=== PATIENT | female | born 1985 | race Hispanic/Latino ===

== ENCOUNTER 2017-11-22 12:54 | Emergency (ER) | payer SELFPAY ==
[2017-11-22 13:55] LABS: BASOPHILS % (AUTO) 0.3 % (0.0-5.0); EOSINOPHILS % (AUTO) 0.8 % (0.0-8.0); HEMATOCRIT 41.1 % (36-48); LYMPHOCYTES % (AUTO) 13.1 % (21.0-51.0); MEAN CORPUSCULAR HEMOGLOBIN 32.7 pg (27.0-33.0); MEAN CORPUSCULAR HGB CONC 35.8 g/dL (32.0-36.0); MEAN CORPUSCULAR VOLUME 91.4 fL (79-99); MONOCYTES % (AUTO) 10.1 % (3.0-13.0); NEUTROPHILS % (AUTO) 75.7 % (40.0-77.0); PLATELET COUNT (AUTO) 232 K/uL (130-400); WHITE BLOOD COUNT (AUTO) 9.6 K/uL (4.8-10.8)
[2017-11-22 13:56] LABS: APPEARANCE,URINE Clear (CLEAR); BILIRUBIN,URINE Negative (NEGATIVE); COLOR,URINE Yellow (YELLOW); GLUCOSE, URINE (UA) Negative (NEGATIVE); KETONES,URINE Negative (NEGATIVE); LEUKOCYTE ESTERASE ,URINE Trace (NEGATIVE); NITRATE,URINE Negative (NEGATIVE); OCCULT BLOOD,URINE Negative (NEGATIVE); PH,URINE 6.5 (5.0-8.0); PROTEIN,URINE Negative (NEGATIVE)
[2017-11-22] MEDS ORDERED: ONDANSETRON HCL MDV 20ML 2 MG/ML VIAL ONE (14:04)
[2017-11-22] MEDS ORDERED: KETOROLAC TROMETHAMINE 30MG/ML ONE (14:04)
[2017-11-22] MEDS ORDERED: SODIUM CHLORIDE 0.9% 1000ML 1,000 ML IV ONE (14:04)
[2017-11-22 14:05] LABS: BACTERIA,URINE Rare /HPF (None Seen); SQUAMOUS EPITHELIAL CELL,UR Few /HPF (0-2); WBC,URINE 0-1 /HPF (0-1)
[2017-11-22 14:06] LABS: CREATININE 0.6 mg/dL (0.5-1.5); POTASSIUM 3.4 mmol/L (3.5-5.1)
[2017-11-22 14:10] LABS: ALBUMIN 3.8 g/dL (3.5-5.0); BILIRUBIN,TOTAL 0.3 mg/dL (0.2-1.0)
== END 2017-11-22 16:22 | disposition home or self-care (01) ==
LOC: EDH 12:54
DX: R10.9 Unspecified abdominal pain (principal)
CPT/HCPCS: 36415; 74176; 80053; 81001; 81025; 85025; 96361; 96374; 96375; 99285; J1885; J7030

== ENCOUNTER 2019-07-18 12:03 | Emergency (ER) | payer SELFPAY ==
[2019-07-18 13:05] LABS: APPEARANCE,URINE CLEAR (CLEAR); BILIRUBIN,URINE NEGATIVE (NEGATIVE); COLOR,URINE RED (YELLOW); GLUCOSE, URINE (UA) NEGATIVE (NEGATIVE); KETONES,URINE NEGATIVE (NEGATIVE); LEUKOCYTE ESTERASE ,URINE TRACE (NEGATIVE); NITRATE,URINE NEGATIVE (NEGATIVE); OCCULT BLOOD,URINE LARGE (NEGATIVE); PROTEIN,URINE 100 mg/dL (NEGATIVE); UROBILINOGEN,URINE 0.2 mg/dL (0.2-1.0)
[2019-07-18 13:08] LABS: HCG,QUAL RESULT NEGATIVE (NEGATIVE)
[2019-07-18 13:13] LABS: BACTERIA,URINE Few /HPF (None Seen); RBC,URINE TNTC /HPF (0-1)
[2019-07-18] MEDS ORDERED: KETOROLAC TROMETHAMINE 30MG/ML ONE (13:32)
== END 2019-07-18 16:33 | disposition home or self-care (01) ==
LOC: EDH 12:03
DX: S39.012A Strain of muscle, fascia and tendon of lower back, initial encounter (principal); F41.9 Anxiety disorder, unspecified; W18.39XA Other fall on same level, initial encounter; Y93.01 Activity, walking, marching and hiking; Y92.89 Other specified places as the place of occurrence of the external cause; Y99.8 Other external cause status
CPT/HCPCS: 72100; 81001; 81025; 96372; 99285; J1885

== ENCOUNTER 2019-10-23 11:13 | Emergency (ER) | payer OTHER ==
[2019-10-23 12:26] LABS: APPEARANCE,URINE Clear (CLEAR); BILIRUBIN,URINE Negative (NEGATIVE); COLOR,URINE Yellow (YELLOW); GLUCOSE, URINE (UA) Negative (NEGATIVE); KETONES,URINE Negative (NEGATIVE); LEUKOCYTE ESTERASE ,URINE Moderate (NEGATIVE); NITRATE,URINE Negative (NEGATIVE); OCCULT BLOOD,URINE Moderate (NEGATIVE); PH,URINE 6.5 (5.0-8.0); PROTEIN,URINE Negative (NEGATIVE); UROBILINOGEN,URINE 0.2 mg/dL (0.2-1.0)
[2019-10-23 12:27] LABS: HCG,QUAL RESULT NEGATIVE (NEGATIVE)
[2019-10-23 12:51] LABS: BACTERIA,URINE Few /HPF (None Seen)
[2019-10-23] MEDS ORDERED: CEFTRIAXONE SODIUM 500 MG VIAL ONE (14:01)
[2019-10-23] MEDS ORDERED: AZITHROMYCIN 250 MG TABLET PO ONE (14:01)
[2019-10-23] MEDS ORDERED: ONDANSETRON ODT 4 MG TAB ONE (14:02)
[2019-10-23] MEDS ORDERED: LIDOCAINE HCL-MPF 1% 2ML VIAL ONE (14:02)
== END 2019-10-23 16:24 | disposition home or self-care (01) ==
LOC: EDH 11:13
DX: N39.0 Urinary tract infection, site not specified (principal); Z20.2 Contact with and (suspected) exposure to infections with a predominantly sexual mode of transmission; Z98.51 Tubal ligation status
CPT/HCPCS: 81001; 81025; 87210; 87486; 87797; 96372; 99283; J0696; J3490

== ENCOUNTER 2020-04-23 04:41 | Emergency (ER) | payer OTHER | END 2020-04-23 05:28 | disposition home or self-care (01) | LOC: EDH 04:41 | DX: F43.0 Acute stress reaction (principal); I10 Essential (primary) hypertension; Z98.51 Tubal ligation status ==

== ENCOUNTER 2020-06-25 11:42 | Emergency (ER) | payer SELFPAY ==
[2020-06-25 12:38] LABS: APPEARANCE,URINE Cloudy (CLEAR); BILIRUBIN,URINE Negative (NEGATIVE); COLOR,URINE Yellow (YELLOW); GLUCOSE, URINE (UA) Negative (NEGATIVE); KETONES,URINE 15 mg/dL (NEGATIVE); LEUKOCYTE ESTERASE ,URINE Small (NEGATIVE); NITRATE,URINE Negative (NEGATIVE); OCCULT BLOOD,URINE Negative (NEGATIVE); PH,URINE 5.5 (5.0-8.0); PROTEIN,URINE Negative (NEGATIVE)
[2020-06-25] MEDS ORDERED: ACETAMINOPHEN EXTRA STRENGTH 500 MG TABLET ONE (12:48)
[2020-06-25 12:57] LABS: BACTERIA,URINE Few /HPF (None Seen); RBC,URINE 0-1 /HPF (0-1); WBC,URINE 0-1 /HPF (0-1)
[2020-06-25 13:22] LABS: RAPID GROUP A STREP NEGATIVE (NEGATIVE)
[2020-06-25] MEDS ORDERED: SODIUM CHLORIDE 0.9% 1000ML 1,000 ML IV ONE (13:37)
[2020-06-25] MEDS ORDERED: AZITHROMYCIN 250 MG TABLET PO ONE (13:39)
[2020-06-25] MEDS ORDERED: CEFTRIAXONE SODIUM 1 GM ONE (13:39)
[2020-06-25] MEDS ORDERED: IBUPROFEN 600 MG TABLET ONE (13:40)
[2020-06-25 13:58] LABS: BASOPHILS % (AUTO) 0.4 % (0.0-5.0); EOSINOPHILS % (AUTO) 1.3 % (0.0-8.0); HEMATOCRIT 40.2 % (36-48); LYMPHOCYTES % (AUTO) 8.2 % (21.0-51.0); MEAN CORPUSCULAR HEMOGLOBIN 32.1 pg (27.0-33.0); MEAN CORPUSCULAR HGB CONC 35.1 g/dL (32.0-36.0); MEAN CORPUSCULAR VOLUME 91.6 fL (79-99); MONOCYTES % (AUTO) 9.5 % (3.0-13.0); NEUTROPHILS % (AUTO) 80.4 % (40.0-77.0); PLATELET COUNT (AUTO) 186 K/uL (130-400); RED BLOOD CELL COUNT(AUTO) 4.39 MIL/uL (4.00-5.50); RED CELL DISTRIBUTION WIDTH 10.9 % (11.0-15.5); WHITE BLOOD COUNT (AUTO) 13.2 K/uL (4.8-10.8)
[2020-06-25 14:20] LABS: INR 0.97 (0.85-1.15); PARTIAL THROMBOPLASTIN TIME 28.7 SEC (26.3-35.5); PROTHROMBIN TIME 10.5 SEC (9.6-11.6)
[2020-06-25 14:25] LABS: ALANINE AMINOTRANSFERASE 39 U/L (12-78); ALBUMIN 3.7 g/dL (3.5-5.0); ASPARTATE AMINOTRANSFERASE 22 U/L (10-37); BILIRUBIN,TOTAL 0.5 mg/dL (0.2-1.0); CARBON DIOXIDE 22 mmol/L (21-32); CHLORIDE 100 mmol/L (101-111); CREATINE KINASE, TOTAL 40 U/L (21-232); GLUCOSE,RANDOM 96 mg/dL (70-105); MYOGLOBIN 20 ng/mL (10-92); SODIUM SERUM 137 mmol/L (136-145); TOTAL PROTEIN, SERUM 7.5 g/dL (6.0-8.3); TROPONIN I < 0.04 ng/mL (0.00-0.06); UREA NITROGEN, BLOOD 7 mg/dL (7-18)
[2020-06-25 14:33] LABS: CREATININE 0.7 mg/dL (0.5-1.5); GLOMERULAR FILTR. RATE CALC 103 mL/min (>60)
== END 2020-06-25 15:52 | disposition home or self-care (01) ==
LOC: EDH 11:42
DX: J02.9 Acute pharyngitis, unspecified (principal); R50.9 Fever, unspecified; R51.9 Headache, unspecified; I10 Essential (primary) hypertension; Z98.51 Tubal ligation status
CPT/HCPCS: 36415; 71045; 80053; 81001; 81025; 82550; 83605; 83874; 84145; 84484; 85025; 85610; 85730; 87040 ×2; 87088; 87804 ×2; 87880; 93005; 96365; 96375; 99285; J0696; J7030

== ENCOUNTER 2021-05-19 22:06 | Emergency (ER) | payer OTHER ==
[~2021-05-19] VITALS: Ht 149.9 cm; Wt 76.2 kg
[2021-05-19] MEDS ORDERED: HYDR-3421 PO (22:39)
[2021-05-19] MEDS ORDERED: HYDROXYZINE 25 MG TABLET ONE (22:41)
[2021-05-19 22:50] VITALS: BP 124/76
[2021-05-19] MEDS ORDERED: HYDROXYZINE 25 MG TABLET PO ONE (23:00)
== END 2021-05-19 22:51 | disposition home or self-care (01) ==
LOC: EDH 22:06
DX: S90.562A Insect bite (nonvenomous), left ankle, initial encounter (principal); S90.561A Insect bite (nonvenomous), right ankle, initial encounter; S20.361A Insect bite (nonvenomous) of right front wall of thorax, initial encounter; B88.0 Other acariasis; W57.XXXA Bitten or stung by nonvenomous insect and other nonvenomous arthropods, initial encounter; Y93.89 Activity, other specified; Y92.89 Other specified places as the place of occurrence of the external cause; Y99.8 Other external cause status

== ENCOUNTER 2022-01-05 18:11 | Emergency (ER) | payer OTHER ==
[~2022-01-05] VITALS: Ht 149.9 cm; Wt 78.0 kg
[~2022-01-05 18:11] MED LIST: HYDR-3421 PO
[2022-01-05 18:13] VITALS: BP 140/88
[2022-01-05 19:01] LABS: BASOPHILS % (AUTO) 0.5 % (0.0-5.0); EOSINOPHILS % (AUTO) 0.4 % (0.0-8.0); HEMATOCRIT 44.1 % (36-48); LYMPHOCYTES % (AUTO) 13.5 % (21.0-51.0); MEAN CORPUSCULAR HEMOGLOBIN 32.5 pg (27.0-33.0); MEAN CORPUSCULAR HGB CONC 34.9 g/dL (32.0-36.0); MONOCYTES % (AUTO) 6.2 % (3.0-13.0); NEUTROPHILS % (AUTO) 79.1 % (40.0-77.0); PLATELET COUNT (AUTO) 216 K/uL (130-400); RED BLOOD CELL COUNT(AUTO) 4.74 MIL/uL (4.00-5.50); RED CELL DISTRIBUTION WIDTH 11.5 % (11.0-15.5); WHITE BLOOD COUNT (AUTO) 11.1 K/uL (4.8-10.8)
[2022-01-05 19:20] LABS: CARBON DIOXIDE 28 mmol/L (21-32); CHLORIDE 102 mmol/L (101-111); CREATININE 0.8 mg/dL (0.5-1.5); GLOMERULAR FILTR. RATE CALC 87 mL/min (>60); GLUCOSE,RANDOM 97 mg/dL (70-105); POTASSIUM 3.9 mmol/L (3.5-5.1); SODIUM SERUM 138 mmol/L (136-145); UREA NITROGEN, BLOOD 9 mg/dL (7-18)
[2022-01-05 19:25] LABS: ALANINE AMINOTRANSFERASE 50 U/L (12-78); ALBUMIN 3.7 g/dL (3.5-5.0); ALCOHOL, BLOOD < 3 mg/dL (0-10); ASPARTATE AMINOTRANSFERASE 26 U/L (10-37); BILIRUBIN,TOTAL 0.4 mg/dL (0.2-1.0); CREATINE KINASE, TOTAL 44 U/L (21-232); TOTAL PROTEIN, SERUM 7.8 g/dL (6.0-8.3)
[2022-01-05 19:27] LABS: APPEARANCE,URINE Clear (CLEAR); BILIRUBIN,URINE Negative (NEGATIVE); COLOR,URINE Yellow (YELLOW); GLUCOSE, URINE (UA) Negative (NEGATIVE); KETONES,URINE Negative (NEGATIVE); LEUKOCYTE ESTERASE ,URINE Negative (NEGATIVE); NITRATE,URINE Negative (NEGATIVE); OCCULT BLOOD,URINE Negative (NEGATIVE); PROTEIN,URINE Negative (NEGATIVE)
[2022-01-05 19:30] LABS: HCG,QUAL RESULT NEGATIVE (NEGATIVE)
[2022-01-05 19:31] LABS: ACETAMINOPHEN < 1 mcg/mL (10-30); SALICYLATE < 2.8 mg/dL (2.8-20.0)
[2022-01-05 19:35] LABS: AMPHET/METH SCREEN,URINE NEGATIVE (NEGATIVE); BARBITURATE SCREEN, URINE NEGATIVE (NEGATIVE); BENZODIAZEPINES SCREEN,URINE NEGATIVE (NEGATIVE); CANNABINOID SCREEN,URINE NEGATIVE (NEGATIVE); COCAINE SCREEN,URINE NEGATIVE (NEGATIVE); OPIATE SCREEN,URINE NEGATIVE (NEGATIVE); PHENCYCLIDINE SCREEN,URINE NEGATIVE (NEGATIVE)
== END 2022-01-05 20:43 | disposition home or self-care (01) ==
LOC: EDH 18:11
DX: Z00.8 Encounter for other general examination (principal); F10.10 Alcohol abuse, uncomplicated; Z20.822 Contact with and (suspected) exposure to COVID-19; E66.9 Obesity, unspecified; F41.9 Anxiety disorder, unspecified; Z68.34 Body mass index [BMI] 34.0-34.9, adult
CPT/HCPCS: 36415; 80053; 80305; 81003; 81025; 82550; 85025; 87635; 99283; C9803; G0481

== ENCOUNTER 2022-02-04 18:14 | Emergency (ER) | payer OTHER ==
[~2022-02-04] VITALS: Ht 149.9 cm; Wt 75.7 kg
[2022-02-04 18:15] VITALS: BP 127/76
[2022-02-04] MEDS ORDERED: ACETAMINOPHEN 500 MG TABLET PO ONE (19:30)
[2022-02-04] MEDS ORDERED: AZITHROMYCIN 250 MG TABLET PO ONE (19:30)
[2022-02-04] MEDS ORDERED: LOPE2CAP PO (19:32)
[2022-02-04] MEDS ORDERED: ACET-66 PO (19:32)
[2022-02-04] MEDS ORDERED: 0.9%NACL 1000ML 1,000 ML IV ONE (21:00)
== END 2022-02-04 20:19 | disposition home or self-care (01) ==
LOC: EDH 18:14
DX: R19.7 Diarrhea, unspecified (principal); R50.9 Fever, unspecified; Z20.822 Contact with and (suspected) exposure to COVID-19; F41.9 Anxiety disorder, unspecified; Z79.899 Other long term (current) drug therapy; Z98.890 Other specified postprocedural states
CPT/HCPCS: 87635; 87804 ×2; 99283; C9803

== ENCOUNTER 2022-02-04 20:39 | Emergency (ER) | payer OTHER ==
[~2022-02-04 20:39] MED LIST changes: +ACET-66 PO; +LOPE2CAP PO
[2022-02-04] MEDS ORDERED: 0.9%NACL 1000ML 1,000 ML IV SCH (21:00)
[2022-02-04] MEDS ORDERED: 0.9%NACL 1000ML 1,000 ML IV ONE (21:00)
[2022-02-04] MEDS ORDERED: ONDANSETRON 4MG INJ IVP ONE (21:00)
[2022-02-04 21:15] VITALS: BP 112/79
[2022-02-04 22:25] LABS: APPEARANCE,URINE CLEAR (CLEAR); BILIRUBIN,URINE SMALL (NEGATIVE); COLOR,URINE YELLOW (YELLOW); GLUCOSE, URINE (UA) NEGATIVE (NEGATIVE); KETONES,URINE 40 mg/dL (NEGATIVE); LEUKOCYTE ESTERASE ,URINE NEGATIVE (NEGATIVE); NITRATE,URINE NEGATIVE (NEGATIVE); OCCULT BLOOD,URINE LARGE (NEGATIVE); PROTEIN,URINE TRACE mg/dL (NEGATIVE); UROBILINOGEN,URINE 0.2 mg/dL (0.2-1.0)
[2022-02-04 22:27] LABS: HCG,QUAL RESULT NEGATIVE (NEGATIVE)
[2022-02-04 22:39] LABS: BACTERIA,URINE Few /HPF (None Seen); MUCUS,URINE Few LPF (None Seen); SQUAMOUS EPITHELIAL CELL,UR 0-2 /HPF (0-2); WBC,URINE 0-1 /HPF (0-1)
== END 2022-02-04 23:10 | disposition home or self-care (01) ==
LOC: EDH 20:39
DX: B34.9 Viral infection, unspecified (principal); E86.0 Dehydration; Z79.899 Other long term (current) drug therapy; Z98.890 Other specified postprocedural states
CPT/HCPCS: 36415; 81001; 81025; 83735; 96361; 96374; 99283; J2405; J7030 ×2

== ENCOUNTER 2022-07-09 22:12 | Emergency (ER) | payer OTHER ==
[~2022-07-09] VITALS: Ht 149.9 cm; Wt 74.8 kg
[2022-07-09] MEDS ORDERED: ONDANSETRON 4MG INJ IVP ONE (22:30)
[2022-07-09] MEDS ORDERED: MAG/ALUM/SIMETH 30 ML UDCUP PO ONE (22:30)
[2022-07-09] MEDS ORDERED: DICYCLOMINE HCL 10 MG/5 ML ML PO ONE (22:30)
[2022-07-09] MEDS ORDERED: LIDOCAINE HCL 2% VISCOUS 15 ML UDCUP PO ONE (22:30)
[2022-07-09] MEDS ORDERED: FAMOTIDINE 20MG VIAL IV ONE (22:30)
[2022-07-09 22:36] LABS: BASOPHILS % (AUTO) 0.5 % (0.0-5.0); LYMPHOCYTES % (AUTO) 17.1 % (21.0-51.0); MEAN CORPUSCULAR HEMOGLOBIN 32.2 pg (27.0-33.0); MEAN CORPUSCULAR HGB CONC 35.9 g/dL (32.0-36.0); MEAN CORPUSCULAR VOLUME 89.9 fL (79-99); NEUTROPHILS % (AUTO) 74.1 % (40.0-77.0); PLATELET COUNT (AUTO) 198 K/uL (130-400); RED BLOOD CELL COUNT(AUTO) 4.56 MIL/uL (4.00-5.50); RED CELL DISTRIBUTION WIDTH 11.4 % (11.0-15.5); WHITE BLOOD COUNT (AUTO) 9.2 K/uL (4.8-10.8)
[2022-07-09 22:44] LABS: CREATININE 0.8 mg/dL (0.5-1.5); POTASSIUM 3.5 mmol/L (3.5-5.1)
[2022-07-09 22:49] LABS: ALBUMIN 3.6 g/dL (3.5-5.0); TOTAL PROTEIN, SERUM 7.8 g/dL (6.0-8.3)
[2022-07-09] MEDS ORDERED: FAMO-136 PO (23:32)
[2022-07-09] MEDS ORDERED: DICY20TA2 PO (23:32)
[2022-07-09 23:43] VITALS: BP 102/67
== END 2022-07-09 23:50 | disposition home or self-care (01) ==
LOC: EDH 22:12
DX: R07.89 Other chest pain (principal); K21.9 Gastro-esophageal reflux disease without esophagitis; E66.9 Obesity, unspecified; Z68.33 Body mass index [BMI] 33.0-33.9, adult; Z98.890 Other specified postprocedural states; Z79.899 Other long term (current) drug therapy
CPT/HCPCS: 99285; 96374; 71045; 96375; 84484; 80053; 84703; 83690; 85025; 36415; 93005; J3490; J2405